=== PATIENT | male | born 1960 | race Caucasian/White ===

== ENCOUNTER 2017-04-22 15:40 | Emergency (ER) | payer OTHER ==
[2017-04-22 15:46] VITALS: BP 164/84
--- NOTE | 2017-04-22 15:58 | UC ---
[facility] Dental HPI - HPI Summary HPI Summary: on antibiotics for 2 days and now has worsening swelling right upper side of mouth/jaw - History of Current Complaint Chief Complaint: UCDentalProblem Stated Complaint: DENTAL PAIN Time Seen by Provider: 04/22/17 15:48 Hx Obtained From: Patient Onset/Duration: Gradual Onset, Lasting Weeks, Worse Since - past 2 days Severity: Moderate Aggravating: Nothing Alleviating: Nothing Related History: Previous Dental Care on Same Tooth, Swelling - Allergies/Home Medications Allergies/Adverse Reactions: Allergies Allergy/AdvReac Type Severity Reaction Status Date / Time Erythromycin Allergy Unknown Verified 04/22/17 17:33 Reaction Details Penicillins Allergy Unknown Verified 04/22/17 17:33 Reaction Details Home Medications: Home Medications Esomeprazole Magnesium [Nexium] 40 mg PO 04/22/17 [History] Lisinopril TAB* [Prinivil TAB*] 5 mg PO DAILY 04/22/17 [History Confirmed ] PMH/Surg Hx/FS Hx/Imm Hx Previously Healthy: No Cardiovascular History: Hypertension GI/ History: Other - ulcerative colitis Other GI/ History: ulcerative colitis - Surgical History Surgical History: None - Family History Known Family History: Positive: Diabetes - Social History Occupation: Unemployed Lives: With Family Alcohol Use: None Substance Use Type: None Smoking Status (MU): Never Smoked Tobacco - Immunization History Most Recent Influenza Vaccination: none Most Recent Tetanus Shot: around 2011 Most Recent Pneumonia Vaccination: none Review of Systems Constitutional: Negative Skin: Negative Eyes: Negative ENT: Dental Pain - worsening swellling right upper side of mouth Respiratory: Negative Cardiovascular: Negative Gastrointestinal: Negative Genitourinary: Negative Motor: Negative Neurovascular: Negative Musculoskeletal: Negative Neurological: Negative Psychological: Negative All Other Systems Reviewed And Are Negative: Yes Physical Exam Triage Information Reviewed: Yes Appearance: Well-Nourished, Ill-Appearing - older than stated age, Pain Distress - mild Vital Signs: Initial Vital Signs Temp 98.6 F 04/22/17 15:43 Pulse 113 04/22/17 15:43 Resp 18 04/22/17 15:43 BP 164/84 04/22/17 15:43 Pulse Ox 98 04/22/17 15:43 Vital Signs Reviewed: Yes Eye Exam: Normal Eyes: Positive: Conjunctiva Clear ENT Exam: Normal ENT: Positive: Normal ENT inspection, Hearing grossly normal. Negative: Nasal congestion, Nasal drainage, Trismus, Muffled/hoarse voice Dental Exam: Normal Dental: Positive: Percussion Tenderness @, Gross Decay/Caries @, Abscess @ Neck exam: Normal Neck: Positive: Supple, Nontender, No Lymphadenopathy Respiratory Exam: Normal Respiratory: Positive: Chest non-tender, No respiratory distress, No accessory muscle use Cardiovascular Exam: Normal Cardiovascular: Positive: RRR, Pulses Normal, Brisk Capillary Refill Musculoskeletal Exam: Normal Musculoskeletal: Positive: Strength Intact, ROM Intact, No Edema Neurological Exam: Normal Neurological: Positive: Alert, Muscle Tone Normal Psychological Exam: Normal Skin Exam: Normal Dental Complaint Course/Dx - Course Course Of Treatment: dental abscess right upper jaw - Differential Dx/Diagnosis Differential Diagnosis/Dx: Dental Abscess, Dental Caries, Fractured Tooth, Peridontic Disease, Peritonsillar Abcess Provider Diagnoses: dental abscess failed outpatient treatment - Physician Notification/Consults Instructed by Provider To: Other - transfer to ed Discharge - Discharge Plan Condition: Stable Disposition: HOME Patient Education Materials: Dental Abscess (ED) Referrals: Tamera Courtney MD [Primary Care Provider] - Additional Instructions: We are recommending you go to the emergency department to receive a higher level of evaluation than what I can provide for you at the urgent care
== END 2017-04-22 16:07 | disposition home or self-care (01) ==
LOC: UCEAST 15:40
DX: K04.7 Periapical abscess without sinus (principal); Z88.1 Allergy status to other antibiotic agents; Z88.0 Allergy status to penicillin; I10 Essential (primary) hypertension; K51.90 Ulcerative colitis, unspecified, without complications
CPT/HCPCS: 99211; G0463

== ENCOUNTER 2017-04-22 16:59 | Emergency (ER) | payer OTHER ==
[2017-04-22] MEDS ORDERED: NS 0.9% 1000 ML* 2,000 ML IV ONE (18:13)
[2017-04-22] MEDS ORDERED: Clindamycin 600 MG IVPREMIX(* 600 MG/50 ML SDV IV ONE (18:15)
[2017-04-22 19:22] LABS: Hematocrit 42 % (42-52); Hemoglobin 14.1 g/dl (14.0-18.0); Mean Corpuscular HGB Conc 33 g/dl (31-36); Mean Corpuscular Hemoglobin 33 pg (27-31); Mean Corpuscular Volume 97 fL (80-94); Mean Platelet Volume 8 um3 (7.4-10.4); Red Blood Count 4.35 10^6/ul (4.0-5.4); Red Cell Distribution Width 15 % (10.5-15)
[2017-04-22 19:38] LABS: BUN/Creatinine Ratio 15.9 (8-20); C Reactive Protein 12.24 mg/L (< 5.00); Calcium 9.4 mg/dL (8.6-10.3); EGFR African American 115.6 (>60); EGFR Non-African American 89.9 (>60); Globulin 3.1 g/dL (2-4); Total Bilirubin 0.4 mg/dL (0.2-1.0); Total Protein 8.1 g/dL (6.4-8.9)
[2017-04-22 19:39] LABS: Potassium 3.6 mmol/L (3.5-5.0)
[2017-04-22] MEDS ORDERED: Iohexol 300* (CONTRAST) 10 ML SDV IV ONE (19:54)
--- NOTE | 2017-04-22 20:45 | RAD ---
indication: Left facial swelling associated with dental abscess. COMPARISON: None A CT scan of the maxillofacial bones was performed after the injection of 75 mL Omnipaque 300. Contiguous axial sections were obtained from the level of the hyoid bone to just above the frontal sinuses. Findings: There is mild subcutaneous induration and thickening in the subcutaneous fat overlying the left mandible and maxilla. There is no drainable fluid collection. The fascial planes between the layers of fat are preserved. Bones: There is no displaced fracture or dislocation. The orbital rim is intact. Bilaterally the nasal bones are intact. The zygomatic arch is intact. The pterygoid plates are intact. There are no definite periapical lucencies at the left mandible or maxilla. The cortices of the bones are intact. Orbits: The globes are round. The optic nerves are symmetric. The extraocular musculature is normal. There is no post septal or intraconal inflammatory change. There is no retrobulbar hematoma. Paranasal Sinuses: There are frothy inspissated secretions in the left maxillary sinus as well as bilateral maxillary sinus mucosal thickening. There are frothy secretions in near complete opacification of the left sphenoid sinus. There is moderate mucosal thickening of the bilateral ethmoid air cells. Visualized brain: The limited views of the brain do not demonstrate any acute abnormality or extra-axial hemorrhage. IMPRESSION: 1. Mild subcutaneous soft tissue swelling and induration overlying the left mandible and maxilla. No drainable abscess is identified. 2. Paranasal sinus mucosal disease.
[2017-04-22 23:03] VITALS: BP 137/76
--- NOTE | 2017-04-23 01:34 | ED ---
Alireza Gomes SooYoung, scribed for Earnest Altman MD on 04/22/17 at 1743 . Complex/Multi-Sys Presentation - HPI Summary HPI Summary: A 57 y/o M [place] [facility] [place] with c/o L facial swelling at cheek onset yesterday. Associated sx: original sx was a moderate tooth ache to L front tooth onset three days ago; intermittent pain at gums. Pt saw a dentist two days and was told he had an infection and would need to have several teeth pulled once infection cleared. Given Clindamycin. Denies fever, chills. Pt states having never seen a dentist before. Denies prev dental problems. PMHx: HTN. No blood thinners. - History Of Current Complaint Chief Complaint: EDDentalPain Time Seen by Provider: 04/22/17 17:41 Hx Obtained From: Patient Onset/Duration: Gradual Onset, Lasting Days, Still Present Timing: Constant Severity Currently: Moderate Severity Initially: Moderate Location: Pain At: - L upper dental Associated Signs And Symptoms: Positive: Other - L cheek edema - Allergies/Home Medications Allergies/Adverse Reactions: Allergies Allergy/AdvReac Type Severity Reaction Status Date / Time Erythromycin Allergy Unknown Verified 04/22/17 17:33 Reaction Details Penicillins Allergy Unknown Verified 04/22/17 17:33 Reaction Details PMH/Surg Hx/FS Hx/Imm Hx Previously Healthy: No Endocrine/Hematology History: Denies: Hx Diabetes Cardiovascular History: Reports: Hx Hypertension Denies: Hx Congestive Heart Failure History: Denies: Hx Renal Disease Sensory History: Reports: Hx Contacts or Glasses Opthamlomology History: Reports: Hx Contacts or Glasses Psychiatric History: Reports: Hx Anxiety Infectious Disease History: Denies: Traveled Outside the [place] in Last 30 Days - Family History Known Family History: Positive: Diabetes - Social History Occupation: Unemployed Lives: With Family Alcohol Use: None Hx Substance Use: No Substance Use Type: Reports: None Hx Tobacco Use: No Smoking Status (MU): Never Smoked Tobacco Review of Systems Negative: Fever Positive: Dental Pain, Other - pos: edema to L cheek; gum pain All Other Systems Reviewed And Are Negative: Yes Physical Exam - Summary Physical Exam Summary: The patient is well-nourished in no acute distress and in no acute pain. The skin is warm and dry and skin color reflects adequate perfusion. HEENT: The head is normocephalic and atraumatic. The pupils are equal and reactive. The conjunctivae are clear and without drainage. Nares are patent and without drainage. Mouth reveals moist mucous membranes and the throat is without erythema and exudate. The external ears are intact. The ear canals are patent and without drainage. The tympanic membranes are intact. Dental: Swelling to L-side of face, not red or hot, no collection of fluid, does not trans-illuminate with light. Central lateral incisors bilat and extending to L side are in poor repair. Gums inflamed. No true tenderness to percussion. Neck is supple with full range of motion and non-tender. There are no carotid bruits. There is no neck vein distension. No adenopathy. Respiratory: Chest is non-tender. Lungs are clear to auscultation and breath sounds are symmetrical and equal. Cardiovascular: Hear is regular rate and rhythm. There is no murmur or rub auscultated. There is no peripheral edema and pulses are symmetrical and equal. Musculoskeletal: There is no back pain noted. Extremities are non-tender with full range of motion. There is good capillary refill. There is no peripheral edema or calf tenderness elicited. Neurological: Patient is alert and oriented to person, place and time. The patient has symmetrical motor strength in all four extremities. Cranial nerves are grossly intact. Deep tendon reflexes are symmetrical and equal in all four extremities. Psychiatric: The patient has an appropriate affect and does not exhibit any anxiety or depression. Triage Information Reviewed: Yes Vital Signs On Initial Exam: Initial Vitals Temp Pulse Resp BP Pulse Ox 98.5 F 120 18 140/96 96 04/22/17 17:30 04/22/17 17:30 04/22/17 17:30 04/22/17 17:30 04/22/17 17:30 Vital Signs Reviewed: Yes Diagnostics - Vital Signs Vital Signs Temp Pulse Resp BP Pulse Ox 04/22/17 17:30 98.5 F 120 18 140/96 96 - Laboratory Lab Results: Lab Results 04/22/17 04/22/17 04/22/17 Range/Units 19:10 19:10 19:10 WBC 8.0 (3.5-10.8) 10^3/ul RBC 4.35 (4.0-5.4) 10^6/ul Hgb 14.1 (14.0-18.0) g/dl Hct 42 (42-52) % MCV 97 H (80-94) fL MCH 33 H (27-31) pg MCHC 33 (31-36) g/dl RDW 15 (10.5-15) % Plt Count 280 (150-450) 10^3/ul MPV 8 (7.4-10.4) um3 Neut % (Auto) 77.3 (38-83) % Lymph % (Auto) 10.8 L (25-47) % [place] % (Auto) 9.5 H (1-9) % Eos % (Auto) 1.8 (0-6) % Baso % (Auto) 0.6 (0-2) % Absolute Neuts (auto) 6.2 (1.5-7.7) 10^3/ul Absolute Lymphs (auto) 0.9 L (1.0-4.8) 10^3/ul Absolute Monos (auto) 0.8 (0-0.8) 10^3/ul Absolute Eos (auto) 0.1 (0-0.6) 10^3/ul Absolute Basos (auto) 0 (0-0.2) 10^3/ul Absolute Nucleated RBC 0 10^3/ul Nucleated RBC % 0.1 Sodium 135 (133-145) mmol/L Potassium 3.6 (3.5-5.0) mmol/L Chloride 103 (101-111) mmol/L Carbon Dioxide 22 (22-32) mmol/L Anion Gap 10 (2-11) mmol/L BUN 14 (6-24) mg/dL Creatinine 0.88 (0.67-1.17) mg/dL Est GFR ( Amer) 115.6 (>60) Est GFR (Non-Af Amer) 89.9 (>60) BUN/Creatinine Ratio 15.9 (8-20) Glucose 100 (70-100) mg/dL Lactic Acid 0.8 (0.5-2.0) mmol/L Calcium 9.4 (8.6-10.3) mg/dL Total Bilirubin 0.40 (0.2-1.0) mg/dL AST 19 (13-39) U/L ALT 21 (7-52) U/L Alkaline Phosphatase 57 (34-104) U/L C-Reactive Protein 12.24 H (< 5.00) mg/L Total Protein 8.1 (6.4-8.9) g/dL Albumin 5.0 (3.2-5.2) g/dL Globulin 3.1 (2-4) g/dL Albumin/Globulin Ratio 1.6 (1-3) Result Diagrams: 04/22/17 19:10 04/22/17 19:10 Lab Statement: Any lab studies that have been ordered have been reviewed, and results considered in the medical decision making process. - CT Maxillofacial CT CT Interpretation: Positive (See Comments) - IMPRESSION: 1. Mild subcutaneous soft tissue swelling and induration overlying the left mandible and maxilla. No drainable abscess is identified. 2. Paranasal sinus mucosal disease. CT Interpretation Completed By: Radiologist Re-Evaluation - Re-Evaluation 1 Re-Evaluation Time: 21:03 Change: Unchanged Comment: Discussing results with pt. Discussed changing dosage of Clindamycin to QID, 300mg. Pt voiced understanding. Complex Multi-Symp Course/Dx Course Of Treatment: Pt is a 57 y/o M referred [place] [facility] [place] with dental pain onset three days ago and L facial swelling at cheek onset yesterday. Associated sx: intermittent pain at gums. Pt saw a dentist two days ago given Clindomycin for infection, will have teeth pulled when infection clears. Denies fever, chills. Pt states having never seen a dentist before. Denies prev dental problems. PMHx: HTN. No blood thinners. Pt given fluids and Clindomycin in ED. Bloodwork is without signifcant abnormalities except CRP is 12.24. Maxillofacial CT shows "1. Mild subcutaneous soft tissue swelling and induration overlying the left mandible and maxilla. No drainable abscess is identified. 2. Paranasal sinus mucosal disease.". Will D/C home to f/u with dentist. Discussed changing Clindamycin to 300mg QID. - Diagnoses Differential Diagnoses/HQI/PQRI: Other - dental infection Provider Diagnoses: Facial cellulitis Discharge - Discharge Plan Condition: Stable Disposition: HOME Prescriptions: Clindamycin Cap(NF) [Clindamycin Cap 300 mg Cap(NF)] 300 mg PO Q6H #10 cap Patient Education Materials: Clindamycin (By mouth), Cellulitis (ED) Referrals: Tamera Courtney MD [Primary Care Provider] - Additional Instructions: As we discussed, increased the Clindamycin dose (300mg) to 4x a day. Follow up with your dentist as scheduled. The documentation as recorded by the Alireza osborne SooYoung accurately reflects the service I personally performed and the decisions made by me, Earnest Altman MD.
== END 2017-04-22 21:17 | disposition home or self-care (01) ==
LOC: ED 16:59
DX: L03.211 Cellulitis of face (principal); K08.89 Other specified disorders of teeth and supporting structures; R60.9 Edema, unspecified
CPT/HCPCS: 36415; 70487; 80053; 83605; 85025; 86140; 99282; Q9967

== ENCOUNTER → 2018-03-31 09:21 | Day surgery (SDC) | payer OTHER ==
--- NOTE | 2018-03-28 16:30 | HP ---
CC: Dr. Tamera Courtney; Dr. Pérez * PREOPERATIVE HISTORY AND PHYSICAL: DATE OF ADMISSION: 03/31/18 DATE OF PREOPERATIVE HISTORY AND PHYSICAL EXAMINATION: 03/28/18. This patient is scheduled for same-day surgery admission by Dr. Haney on , 03/31/18. ATTENDING SURGEON: Dr. Frankie Haney * (dictated by Kalani Miller NP). CHIEF COMPLAINT: Bilateral groin hernias. HISTORY OF PRESENT ILLNESS: The patient is a 58-year-old male, recently evaluated by Dr. Haney for bilateral inguinal hernias. He was seen approximately 2 years ago and at that point, the hernias were small and asymptomatic. The patient reports that the hernias have enlarged and are becoming uncomfortable, especially on the left side. He denies any signs or symptoms to suggest incarceration or strangulation. He has not had any recent injury or trauma to the area. Dr. Haney examined the patient and notes bilateral inguinal hernias, left larger than right and the left side comes down into the scrotum. Both inguinal hernias are soft and reducible. Dr. Haney discussed the findings with the patient and discussed the various surgical approaches and the patient has opted for open bilateral inguinal hernia repair with mesh as a same-day surgery procedure. Dr. Haney described the nature of the surgical procedure, the rationale for the procedure, the relevant risks and benefits, and today, I reviewed the expected postoperative care and recovery. The patient has had a chance to ask questions and stated that he understands the information and is satisfied with the answers given to his questions. He will sign surgical consent on the day of surgery. PAST MEDICAL HISTORY: Significant for hypertension, hyperlipidemia, chronic ulcerative colitis, GERD, anxiety, panic disorder. PAST SURGICAL HISTORY: Limited to office excision of a lipoma on the chest. MEDICATIONS: 1. Lisinopril 10 mg p.o. daily. 2. Diltiazem CD 180 mg p.o. daily. 3. Hydroxyzine 25 mg as needed for anxiety and he rarely uses this. 4. Gemfibrozil 600 mg p.o. b.i.d. 5. Sulfasalazine 500 mg 2 tablets p.o. 4 times a day. 6. Mercaptopurine 50 mg 1 and a half tablets daily. 7. Omeprazole 40 mg p.o. daily. 8. Fish oil supplement 1000 mg p.o. daily. ALLERGIES: PENICILLIN caused rash in childhood, ERYTHROMYCIN causes GI upset. FAMILY HISTORY: Father with a history of RI and emphysema. Mother is living and has thyroid and cardiac issues. No known anesthesia complications, clotting disorders, or bleeding tendencies in the family. SOCIAL HISTORY: He is single and lives with his mother. He is unemployed. He has never been a smoker. He denies the use of alcohol or other substances and walks regularly for exercise. REVIEW OF SYSTEMS: Constitutional: No fevers, chills, excessive fatigue, or weight loss. Endocrine: No diabetes or thyroid disease. Hematologic: No easy bruising or bleeding. No history of blood transfusions. Respiratory: No dyspnea on exertion, no chronic cough. Cardiovascular: No anginal chest pain or palpitations. He is followed by Dr. Pérez for hypertension and hyperlipidemia and had his last week on 01/12/18. He denied any shortness of breath or chest pain or syncopal episodes. He has followup scheduled at Dr. Pérez's office on 04/15/18. Gastrointestinal: No nausea, vomiting, diarrhea, or constipation. No change in bowel habits. He is treated for ulcerative colitis and GERD with good effect. Genitourinary: No dysuria. Musculoskeletal: No joint or back pain. Neurologic: No headache or blurred vision. No areas of focal weakness. General: No previous anesthesia complications. No history of deep vein thrombosis or pulmonary embolism. Psychiatric: History of anxiety and panic disorders. PHYSICAL EXAMINATION GENERAL SURVEY: The patient is a 58-year-old male, well developed, well nourished, mildly overweight, in no acute distress. VITAL SIGNS: Height 72 inches, weight 205 pounds, body mass index 27.8. Blood pressure 160/78, pulse 100, respiratory rate 16, temperature 99.2 tympanic. HEENT: Benign. NECK: Supple. No cervical lymphadenopathy. LUNGS: Breath sounds bilaterally clear and equal. HEART: Regular rate and rhythm. No murmurs or rubs appreciated. ABDOMEN: Active bowel sounds, soft, nondistended, nontender. No obvious umbilical hernia. Inguinal exam is done by Dr. Haney reveals bilateral inguinal hernias, left larger than right and the left side comes down into the scrotum, both hernias are soft and reducible. Testes are normally descended. RECTAL: Exam deferred. EXTREMITIES: Warm without edema or skin ulceration. NEUROLOGIC: Alert and oriented x3. Steady gait. SKIN: Warm, dry, intact. IMPRESSION: Bilateral inguinal hernias. PLAN: Same-day surgery admission to Dr. Haney's service on , 03/31/18 , for open repair of bilateral inguinal hernias with mesh. WALDO MILLER, [employer]PER[employer] [id number]/[facility] #: [id number] [facility] CENTERTabitha
[~2018-03-31 09:21] MED LIST: Buffered Lidocaine 0.9% SYRIN* 5 ML/SYR SYRINGE INTRADERM ONE; Bupivacaine 0.5% PF 10 ML VIAL INJ ONE; Clindamycin 900 MG IVPREMIX(* 900 MG/50 ML SDV IV ONE; DiMENhydriNATE IV* 50 MG/ML VIAL IV PUSH PRN; HYDROmorphone INJ* 0.5 MG/0.5 ML SYRINGE IV PRN; Ketorolac INJ* 30 MG/ML 1 ML VIAL ONE; Lidocaine 1% MPF wEPI 200,000* 30 ML SDV ONE; Midazolam* 1 MG/ML 5 ML VIAL (5 MG) ONE; Naloxone* 0.4 MG/ML 1 ML VIAL IV PRN; Ondansetron INJ* 2 MG/ML VIAL IV PRN; Propofol* 10 MG/ML 20 ML BTL IV PUSH ONE; fentaNYL* 50 MCG/ML 2 ML VIAL (100 MCG VIAL) IV PRN; fentaNYL* 50 MCG/ML 2 ML VIAL (100 MCG VIAL) ONE
[2018-03-31 14:20] VITALS: BP 166/95
--- NOTE | 2018-03-31 22:40 | OP ---
CC: Dr. Tamera Courtney * DATE OF OPERATION: 03/31/18 - [facility] DATE OF : 64 SURGEON: Frankie Haney MD HERPETOLOGY TEACHER: Kalani Crowley NP ANESTHESIOLOGIST: Nilton Núñez MD ANESTHESIA: LMAC anesthesia. PRE-OP DIAGNOSIS: Bilateral inguinal hernias. POST-OP DIAGNOSIS: Bilateral inguinal hernias. OPERATIVE PROCEDURE: Open repair of bilateral inguinal hernias with mesh. DESCRIPTION OF PROCEDURE: The patient was supine on the operating table. After adequate intravenous sedation, compression stockings and Clover Hugger warmer, the groins were clipped and prepped with antiseptic, draped in a sterile fashion. Local infiltrative anesthesia was administered. The left side was addressed first. An approximately 2.5-inch incision was created and dissection carried down through the external oblique, which was opened in the direction of its fibers. Cord structures were encircled with the [place] drain tented upward. There was a fairly large indirect space sac within the cremasteric fibers. This was dissected free and reduced and a cone mesh plug was placed into the internal ring, sutured there with 2-0 Vicryl. A second piece of mesh was placed over the inguinal floor, sutured at the tubercle tails , was split, brought around the cord structures and tacked down laterally. External oblique was closed over top with 2-0 Vicryl, Mojgan's with 3-0 Vicryl, skin with 4-0 Prolene. On the right side, identical incision and dissection was carried out. There was a moderate-sized indirect sac, but there was also a moderate-sized direct space defect. The direct space was opened and the preperitoneal plane developed and the hernia was reduced. The indirect space was also addressed and the hernia was dissected free and reduced. Then, a cone mesh plug was placed into the internal ring, sutured there with 2-0 Vicryl. An underlay patch was put into the preperitoneal plane. This was approximately an 8 cm shoalwater. This was attached to an external piece, which was sutured at the tubercle. Tails were split and brought around the cord structures and tacked down laterally. This mesh was also tacked to the inguinal ligament and to the pubic tubercle and to the transverse abdominis. This created good repair. External oblique was closed over top with 2-0 Vicryl, Mojgan's with 3-0 Vicryl, skin with 4-0 Prolene. He tolerated the procedure well, was awakened and brought to Recovery in good condition. There were no complications. No drains. No pathologic specimens. Sponge and instrument counts were correct. Estimated blood loss less than 30 mL. [id number]/[id number] #: [id number] [facility]
== END | disposition home or self-care (01) ==
LOC: OR 09:21
PROVIDERS: ATTEND Surgery
DX: K40.20 Bilateral inguinal hernia, without obstruction or gangrene, not specified as recurrent (principal); I10 Essential (primary) hypertension; E78.5 Hyperlipidemia, unspecified; K51.90 Ulcerative colitis, unspecified, without complications; K21.9 Gastro-esophageal reflux disease without esophagitis; F41.0 Panic disorder [episodic paroxysmal anxiety]
CPT/HCPCS: C1781; J1885; J2001; J2250; J2704; J3010

== ENCOUNTER 2018-05-25 10:41 | Observation (INO) | payer OTHER ==
--- NOTE | 2018-05-25 11:03 | ED ---
HPI Chest Pain - HPI Summary HPI Summary: This patient is a 58 year old M presenting to [facility] accompanied by his mother with a chief complaint of mid sternal chest tightness for the past two hours and palpitations since last night. Patient rates tightness 3/10 in severity; he states it is improved from triage at 7/10 in severity. Denies SOB, abdominal pain, back pain, calf pain, and cough. Patient reports a history of premature beats, but states last night palpitations were more frequent than usual. PMHx of HTN, hyperlipidemia, anxiety, and colitis. FMHx for [place]; father at age 60. Denies PMHx and FMx of DVT. Patient is seen by Dr. Pérez, electrical installation supervisor. - History of Current Complaint Chief Complaint: EDChestPainROMI Time Seen by Provider: 05/25/18 10:58 Hx Obtained From: Patient Onset/Duration: Started Hours Ago Timing: Constant Initial Severity: Severe Current Severity: Moderate Pain Intensity: 3 Pain Scale Used: 0-10 Numeric Chest Pain Location: Mid Sternal Chest Pain Radiates: No Character: Fast, Skipped Beats, Tightness Aggravating Factor(s): Nothing Alleviating Factor(s): Nothing Associated Signs and Symptoms: Positive: Chest Pain. Negative: Shortness of Breath, Cough, Back Pain, Abdominal Pain, Calf Pain/Swelling Related History: Similar Episode/Dx as: - premature beats - Allergy/Home Medications Allergies/Adverse Reactions: Allergies Allergy/AdvReac Type Severity Reaction Status Date / Time erythromycin base Allergy Unknown Verified 03/31/18 09:42 Reaction Details Penicillins Allergy Unknown Verified 03/31/18 09:42 Reaction Details Home Medications: Home Medications [place]-3 Fatty Acids (Nf) [Fish Oil (NF)] 1,000 mg PO DAILY 05/25/18 [History Confirmed 05/25/18] Omeprazole CAP* [Prilosec CAP* 20 MG] 40 mg PO DAILY 05/25/18 [History Confirmed 05/25/18] dilTIAZem HCl [Cartia Xt] 180 mg PO DAILY 05/25/18 [History Confirmed 05/25/18] sulfaSALAzine TAB* [Azulfidine TAB*] 1,000 mg PO QPM 05/25/18 [History Confirmed 05/25/18] sulfaSALAzine TAB* [Azulfidine TAB*] 1,500 mg PO BID 05/25/18 [History Confirmed 05/25/18] PMH/Surg Hx/FS Hx/Imm Hx Endocrine/Hematology History: Reports: Hx Diabetes - pre Cardiovascular History: Reports: Hx Hypercholesterolemia, Hx Hypertension - on meds Denies: Hx Congestive Heart Failure, Other Cardiovascular Problems/Disorders Respiratory History: Denies: Other Respiratory Problems/Disorders GI History: Reports: Hx Gastroesophageal Reflux Disease, Hx Hiatal Hernia, Other GI Disorders - ulcerative colitis, on meds History: Denies: Hx Renal Disease Sensory History: Reports: Hx Contacts or Glasses Denies: Hx Hearing Aid Opthamlomology History: Reports: Hx Contacts or Glasses Psychiatric History: Reports: Hx Anxiety - on meds - Surgical History Surgery Procedure, Year, and Place: 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 Hx Anesthesia Reactions: No Infectious Disease History: No Infectious Disease History: Denies: Traveled Outside the [place] in Last 30 Days - Family History Known Family History: Positive: Cardiac Disease - Father: age 60 [place], Diabetes - Social History Alcohol Use: None Hx Substance Use: No Substance Use Type: Reports: None Hx Tobacco Use: No Smoking Status (MU): Never Smoked Tobacco Review of Systems Negative: Fever, Chills Negative: Erythema Negative: Sore Throat Positive: Palpitations, Chest Pain Negative: Shortness Of Breath, Cough Negative: Abdominal Pain, Vomiting, Diarrhea, Nausea Negative: dysuria, hematuria Negative: Myalgia, Edema Negative: Rash Neurological: Negative - dizziness All Other Systems Reviewed And Are Negative: Yes Physical Exam - Summary Physical Exam Summary: Constitutional: Well-developed, Well-nourished, Alert. (-) Distressed Diaphoretic Skin: Warm, Dry HENT: Normocephalic; Atraumatic Eyes: Conjunctiva normal Neck: Musculoskeletal ROM normal neck. (-) JVD, (-) Stridor, (-) Tracheal deviation Cardio: Irregular pulse with slightly elevated rate, Heart sounds normal; Intact distal pulses; The pedal pulses are 2+ and symmetric. Radial pulses are 2 + and symmetric. (-) Murmur Pulmonary/Chest wall: Effort normal. (-) Respiratory distress, (-) Wheezes, (-) Rales Abd: Soft, (-) epigastric tenderness, (-) Distension, (-) Guarding, (-) Rebound Musculoskeletal: (-) Edema Lymph: (-) Cervical adenopathy Neuro: Alert, Oriented x3 Psych: Mood and affect Normal Triage Information Reviewed: Yes Vital Signs On Initial Exam: Initial Vitals Temp Pulse Resp BP Pulse Ox 98.9 F 125 22 209/111 99 05/25/18 10:44 05/25/18 10:44 05/25/18 10:44 05/25/18 10:44 05/25/18 10:44 Vital Signs Reviewed: Yes Diagnostics - Vital Signs Vital Signs Temp Pulse Resp BP Pulse Ox 05/25/18 10:44 98.9 F 125 22 209/111 99 - Laboratory Result Diagrams: 05/25/18 11:25 05/25/18 11:25 Lab Statement: Any lab studies that have been ordered have been reviewed, and results considered in the medical decision making process. - Radiology CXR Radiology Interpretation Completed By: Radiologist - NO ACTIVE CARDIOPULMONARY DISEASE. ED Physician has reviewed this report. - EKG 1048 Cardiac Rate: Tachycardia - 105 BPM EKG Rhythm: Sinus Rhythm EKG Interpretation: no STEMI Chest Pain Course/Dx - Course Course Of Treatment: 58 year old M presenting to [facility] accompanied by his mother with a chief complaint of mid sternal chest tightness for the past two hours and palpitations since last night. Patient rates tightness 3/10 in severity; he states it is improved from triage at 7/10 in severity. Denies SOB, abdominal pain, back pain, calf pain, and cough. Patient reports a history of premature beats, but states last night palpitations were more frequent than usual. PMHx of HTN, hyperlipidemia, anxiety, and colitis. Patient is seen by Dr. Pérez, electrical installation supervisor. EKG is of no acute concern. A CXR reveals no active disease. Bloodwork is obtained. Blood pressure is elevated in the ED. Patient is hypertensive if the ED. Patient is given Nitroglycerin, Metoprolol, Ativan, and ASA. Discussed patient with Dr. Palacios, hospitalist, who agrees to admit this patient. - Diagnoses Provider Diagnoses: Hypertensive emergency, Chest pain, unspecified - Provider Notifications Discussed Care Of Patient With: Shahida Palacios - hospitalist Time Discussed With Above Provider: 12:18 Instructed by Provider To: Admit As Inpatient Discharge - Sign-Out/Discharge Documenting (check all that apply): Patient Departure - admit - Discharge Plan Condition: Stable Disposition: ADMITTED TO [facility] - Attestation Statements Document Initiated by Scribe: Yes Documenting Scribe: Katherine Gonzalez Provider For Whom Scribe is Documenting (Include Credential): Singh Siddiqui MD Scribe Attestation: Katherine Gomes, scribed for Singh Siddiqui MD on 05/25/18 at 1511.
[2018-05-25] MEDS ORDERED: Metoprolol Tartrate IV* 1 MG/ML 5 ML VIAL IV ONE (11:18)
[2018-05-25] MEDS ORDERED: LORazepam INJ* 2 MG/ML 1 ML VIAL IV PUSH ONE (11:18)
[2018-05-25] MEDS ORDERED: Aspirin 81 mg CHEW TAB* 81 MG TAB.CHEW PO ONE (11:22)
[2018-05-25] MEDS ORDERED: Nitroglycerin TAB 0.4 MG* 0.4 MG TAB SL ONE (11:22)
[2018-05-25 11:39] LABS: ABS Basophils 0.1 10^3/ul (0-0.2); ABS Eosinophils 0.4 10^3/ul (0-0.6); ABS Lymphocytes 1.7 10^3/ul (1.0-4.8); ABS Monocytes 0.5 10^3/ul (0-0.8); ABS Neutrophils 4.6 10^3/ul (1.5-7.7); ABS Nucleated RBC 0 10^3/ul; Hematocrit 42 % (42-52); Hemoglobin 13.8 g/dl (14.0-18.0); Lymphocyte % 22.8 % (25-47); Mean Corpuscular HGB Conc 33 g/dl (31-36); Mean Corpuscular Hemoglobin 29 pg (27-31); Mean Corpuscular Volume 88 fL (80-94); Mean Platelet Volume 7.7 um3 (7.4-10.4); Nucleated Red Blood Cells % 0.1; Platelet Count 276 10^3/ul (150-450); Red Blood Count 4.76 10^6/ul (4.00-5.40); Red Cell Distribution Width 15 % (10.5-15); White Blood Count 7.4 10^3/ul (3.5-10.8)
--- NOTE | 2018-05-25 11:40 | RAD ---
HISTORY: CHEST PAIN COMPARISONS: 01/11/2016 VIEWS: 1: frontal portable view of the chest at 12:24 AM FINDINGS: LINES AND TUBES: None. CARDIOMEDIASTINAL SILHOUETTE: The cardiomediastinal silhouette is normal for portable technique. PLEURA: The costophrenic angles are sharp. No pleural abnormalities are noted. LUNG PARENCHYMA: The lungs are clear. ABDOMEN: The upper abdomen is clear. There is no subphrenic gas. BONES AND SOFT TISSUES: No bone or soft tissue abnormalities are noted. IMPRESSION: NO ACTIVE CARDIOPULMONARY DISEASE.
[2018-05-25] MEDS ORDERED: NS 0.9% 1000 ML* 1,000 ML IV ONE (13:37)
[2018-05-25] MEDS: sulfaSALAzine TAB* 500 MG PO SCH ×3 (13:46→21:31)
[2018-05-25] MEDS: Heparin VIAL(*) 5000 UNITS/ML VIAL (FIVE THOUSAND) SUBCUT SCH ×2 (13:55→21:29)
[2018-05-25] MEDS ORDERED: Perflutren Lipid Microsphere* 3 ML VIAL ONE (14:33)
--- NOTE | 2018-05-25 15:38 | ECHO ---
Patient: GUILLAUME ROMAN [facility] Rec#: [id number] : 1960 Date: 05/25/2018 Age: 58y Height: 183 cm / 72.0 in Weight: 108.9 kg / 240.0 lbs Sex: M BSA: 2.3 Room#: [facility] Admit Date#: 05/25/2018 Type: Inpatient Referring: Mara Price Reading: Michelle Fung MD Rippler: Sadaf Barboza RDCS CC: AURELIO MONTILLA Transthoracic Echocardiogram Indication: Chest Pain BP: 132/88 HR: 88 Rhythm: NSR with PACs Findings History: HLD, HTN, palpitations. Technical Comments: The study is technically limited due to poor apical windows. Completed at 1515. Left Ventricle: The left ventricular chamber size is normal. There is no left ventricular hypertrophy. Global left ventricular wall motion and contractility are within normal limits. There is normal left ventricular systolic function. The estimated ejection fraction is 55-60%. There is no consistent Doppler evidence of clinically significant diastolic dysfunction. Left Atrium: The left atrial chamber size is normal. Right Ventricle: Moderator Band present. The right ventricle is mild to moderately dilated. The right ventricular global systolic function is normal. Right Atrium: The right atrium is mildly dilated. Aortic Valve: The aortic valve is trileaflet. There is no evidence of aortic valve thickening. There is no evidence of aortic regurgitation. There is no evidence of aortic stenosis. Mitral Valve: The mitral valve leaflets are mildly thickened. There is a trace of mitral regurgitation. There is no evidence of mitral stenosis. Tricuspid Valve: The tricuspid valve leaflets are normal. There is trace tricuspid regurgitation. Unable to estimate the right ventricular systolic pressure. There is no tricuspid stenosis. Pulmonic Valve: The pulmonic valve appears normal. There is a trace pulmonic regurgitation. There is no pulmonic stenosis. Pericardium: There is no significant pericardial effusion. Aorta: There is no dilatation of the ascending aorta. There is no dilatation of the aortic arch. The aortic root is normal in size. Pulmonary Artery: The main pulmonary artery appears normal. Venous: The inferior vena cava is not visualized. Contrast: Definity was used to optimize study. 3 mL of diluted Defiinity were utilized. Intravenous contrast was used to enhance endocardial border definition. Conclusions The left ventricular chamber size is normal. The estimated ejection fraction is 55-60%. The right ventricle is mild to moderately dilated. The right ventricular global systolic function is normal. There is a trace of mitral regurgitation. There is trace tricuspid regurgitation. Compared with prior echo of 12/24/14 LVEF is stable, RV previously dilated. Overall stable. Measurements Name Value Normal Range RVIDd (AP) 2D 3.2 cm (0.9 - 2.6) RVDdMajor (2D) 5 cm (2.2 - 4.4) RAd ISD 4CH 5.4 cm (3.4 - 4.9) RA (A4C)W 4.5 cm (2.9 - 4.6) IVSd (2D) 0.8 cm (0.6 - 1) LVPWd (2D) 0.9 cm (0.6 - 1) LVIDd (2D) 5.3 cm (3.6 - 5.4) LVIDs (2D) 3.1 cm - LV FS (2D) 42 % (25 - 45) Aortic Annulus 1.8 cm (1.4 - 2.6) Ao root diameter (2D) 3.3 cm (2.1 - 3.5) Ascending Ao 3.3 cm (2.1 - 3.4) Aortic arch 3.2 cm (1.8 - 3.4) LA dimension (AP) 2D 3.5 cm (2.3 - 3.8) LAd ISD 4CH 5 cm (2.9 - 5.3) LA ISD 4CH W 4.3 cm (2.5 - 4.5) Name Value Normal Range LA ESV BP (A/L) index 25 ml/m2 - Name Value Normal Range MV E-wave Vmax 0.97 m/sec - MV deceleration time 236 msec - MV A-wave Vmax 1 m/sec - MV E:A ratio 0.9 ratio - LV septal e' Vmax 0.08 m/sec - LV lateral e' Vmax 0.09 m/sec - LV E:e' septal ratio 12 ratio - LV E:e' lateral ratio 10.78 ratio - Name Value Normal Range AV Vmax 1.6 m/sec - AV VTI 28.7 cm - AV peak gradient 11 mmHg - AV mean gradient 6 mmHg - LVOT Vmax 1.2 m/sec - LVOT VTI 20.7 cm - LVOT peak gradient 5 mmHg - LVOT mean gradient 3 mmHg - FATOUMATA Vmax 1.1 m/sec - Name Value Normal Range PV Vmax 1.5 m/sec - PV peak gradient 9 mmHg - MN end-diastolic Vmax 1.2 m/sec -
[2018-05-25] MEDS ORDERED: Lisinopril TAB* 10 MG PO SCH (18:00)
--- NOTE | 2018-05-25 19:51 | HP ---
HISTORY AND PHYSICAL: DATE OF ADMISSION: 05/25/18 PROVIDER: Helen Alvarez NP ATTENDING PHYSICIAN: Dr. Herndon * (report dictated by Helen Alvarez NP). PRIMARY CARE PROVIDER: Dr. Tamera Courtney. BENEFITS ADMINISTRATOR: Dr. Pérez. CHIEF COMPLAINT: Chest tightness. HISTORY OF PRESENT ILLNESS: Mr. Bello is a 58-year-old male with a past medical history of palpitations; history of trigeminy; hypertension; dyslipidemia; ulcerative colitis, on sulfasalazine and mercaptopurine, who presents to the emergency department today with report of chest tightness and palpitations. 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 He reports that he was playing video games all night on the computer. Around 6: 00 a.m., he noted that he was having increased palpitations which is not quite unusual for him but reports that these have been more controlled as of lately. He reports he went to lie down and noted that the palpitations were still present and he became concerned and worried stating somebody told him once if he had too many palpitations that his heart could stop. He then states he became very anxious. He experienced chest tightness in his midsternum area. He denied any shortness of breath or radiation. He decided to come to the emergency department and the whole ride here, he states that his chest tightness became worse and he felt more panicked. In the emergency department, he was initially found to have a blood pressure of 209/111. He was given a sublingual nitro and 5 of metoprolol in the emergency department in which he reports resolved his chest pressure and resolved his hypertension urgency. Initial troponin is 0.00. His lactic acid is noted to be 2.5. He denies any recent illnesses and reports that he has been feeling well at his baseline. He reports that he walks a mile or two a day and denies ever having any chest pain or shortness of breath. He states that he follows with Dr. Pérez and recently within the last couple of months, his lisinopril was increased and he had a followup approximately 3 weeks ago and his blood pressure was noted to be well controlled around 122/72. The patient reports he had a stress test 2 to 3 years ago, reporting that this placed him at low risk. He denies history of heart attack before in the past, but reports strong family history. The patient reports significant anxiety at his baseline, currently he reports he feels much better and denies any chest pain or shortness of breath. PAST MEDICAL HISTORY: 1. Hypertension. 2. Dyslipidemia. 3. Anxiety. 4. History of palpitations. 5. History of trigeminy. 6. Ulcerative colitis. 7. GERD. PAST SURGICAL HISTORY: Bilateral hernia repair, 2018. CURRENT MEDICATIONS: 1. Fish oil 1000 mcg p.o. daily. 2. Omeprazole 40 mg p.o. daily. 3. Lisinopril 10 mg p.o. q.a.m. 4. Diltiazem HCl 180 mg p.o. daily in the morning. 5. Mercaptopurine 75 mg p.o. daily. 6. Chemo meds used for ulcerative colitis (sulfasalazine 1500 mg p.o. in the morning and mid day and 1000 mg at nighttime). ALLERGIES: ERYTHROMYCIN, PENICILLIN. FAMILY HISTORY: The patient reports a strong family history of coronary artery disease, his father had an PA and 2 uncles both had PA, otherwise no family history of diabetes or cancer. SOCIAL HISTORY: The patient denies history of tobacco abuse. He does not drink alcohol. He reports little caffeine intake. He currently lives with his mother who is his surrogate decision maker. She currently is present during the evaluation. REVIEW OF SYSTEMS: A 14-point review of systems was performed. All other pertinent positives and negatives are mentioned in the history of present illness. Otherwise are negative. PHYSICAL EXAMINATION GENERAL APPEARANCE: A 58-year-old male, alert and oriented x3, sitting up in the emergency department stretcher, in no acute distress. VITAL SIGNS: Temperature 98.9, heart rate 75, respirations 15, O2 sat 96% on room air, blood pressure 132/88. HEENT: Head is normocephalic, atraumatic. Pupils are equal and reactive to light. Oropharynx is clear. Moist mucous membranes. Poor dentition. NECK: Supple. LUNGS: Clear to auscultation bilaterally. Good aeration throughout. No accessory muscle use. CARDIAC: S1, S2. Regular rate and rhythm. No murmur, rub, or gallops appreciated. No lower extremity edema noted. No JVD noted. ABDOMEN: Slightly obese, soft, nontender, nondistended. Normal bowel sounds throughout. EXTREMITIES: No clubbing, cyanosis, or edema. 2+ DP pulses bilaterally. Strength was 5/5 throughout. Moves all extremities easily. NEUROLOGIC: Alert and oriented x3. Cranial nerves II through XII are grossly intact. No focal deficits noted. DIAGNOSTIC STUDIES/LAB DATA: WBC 7.4, RBC 4.76, Hgb 13.8, Hct 48, MCV 88, MCH 29, MCHC 33, RDW 15, platelet count 276. Sodium 137, potassium 3.6, chloride 103, carbon dioxide 24, anion gap 10, BUN 15, creatinine 0.93, glucose 113, lactic acid 2.5, calcium 9.2. Total bilirubin 0.30, AST 21, ALT 34, alkaline phosphatase 36. Troponin 0.00. Total protein 7.5, albumin 4.4. Chest x-ray, impression: No active cardiopulmonary disease. EKG: Sinus tachycardia with a rate of 105, in comparison to prior EKG, no acute ST changes noted. ASSESSMENT AND PLAN: Mr. Bello is a 58-year-old male with past medical history of palpitations, trigeminy, anxiety, hypertension, ulcerative colitis, dyslipidemia, who presented to the emergency department today with complaints of palpitations and chest tightness. 1. Chest pain, rule out acute coronary syndrome. Currently, the patient's chest discomfort has resolved. His initial troponin is flat at 0.00. He has known noted EKG changes. The patient will be admitted for observation to telemetry to trend troponins and monitor on telemetry. His KAREN score is 2. Plan for an exercise stress test in the morning. We will order an echocardiogram as the patient's lactate is 2.5, which is unclear why this is elevated at this time; it is possible that he is in a low perfusion state. 2. Hypertension urgency. Unclear etiology why the patient was still hypertensive; however, he does report significant severe anxiety related to these palpitations he was experiencing. Currently, he reports that his current medication regimen has been keeping him well controlled. We will continue home meds at this time and continue to monitor. 3. Lactic acidosis. Again, unclear etiology; however, low suspicion this is infectious related. We will give the patient a liter of fluid and recheck the lactate afterwards. 4. Ulcerative colitis. We will continue his home medications. 5. Dyslipidemia. He was recently taken off his gemfibrozil due to elevated liver enzymes which he reports has since resolved. 6. DVT prophylaxis. Heparin subcu. 7. Code status. Full code. TIME SPENT: Approximately 60 minutes was spent on this admission. HELEN ALVAREZ, REFINERY OPERATOR [employer] [id number]/CPS #: [id number] MIRANDA
[2018-05-25] MEDS ORDERED: Diltiazem CD CAP* 180 MG PO SCH ×2 (20:10→21:00)
[2018-05-25] MEDS ORDERED: Mercaptopurine TAB* 50 MG PO SCH (21:00)
[2018-05-25] MEDS: Gemfibrozil TAB* 600 MG PO SCH (21:30)
[2018-05-26] MEDS: Heparin VIAL(*) 5000 UNITS/ML VIAL (FIVE THOUSAND) SUBCUT SCH ×2 (05:12→12:54)
[2018-05-26 06:59] LABS: ABS Basophils 0 10^3/ul (0-0.2); ABS Eosinophils 0.4 10^3/ul (0-0.6); ABS Monocytes 0.7 10^3/ul (0-0.8); ABS Neutrophils 4.6 10^3/ul (1.5-7.7); ABS Nucleated RBC 0 10^3/ul; Eosinophil % 4.8 % (0-6); Hematocrit 40 % (42-52); Hemoglobin 13.1 g/dl (14.0-18.0); Lymphocyte % 26.3 % (25-47); Mean Corpuscular HGB Conc 33 g/dl (31-36); Mean Corpuscular Hemoglobin 29 pg (27-31); Mean Corpuscular Volume 87 fL (80-94); Mean Platelet Volume 7.5 um3 (7.4-10.4); Nucleated Red Blood Cells % 0.1; Platelet Count 264 10^3/ul (150-450); Red Blood Count 4.61 10^6/ul (4.00-5.40); Red Cell Distribution Width 15 % (10.5-15); White Blood Count 7.7 10^3/ul (3.5-10.8)
[2018-05-26 07:17] LABS: EGFR Non-African American 97.2 (>60)
--- NOTE | 2018-05-26 08:48 | PN ---
Subjective Date of Service: 05/26/18 Interval History: Mr. Bello reports that he is feeling well this morning. He is not having palpitations today. He has a history of trigeminy for which he follows with Dr. Pérez. Diltiazem usually provides good control of diltiazem. He denies caffeine intake. He reports that his chest pain was only in the setting of severe anxiety brought on by worry about the palpitations. He denies chest pain today. He further denies shortness of breath, nausea, or abdominal pain. Objective Active Medications: Aspirin (Aspirin 81 Mg Chew Tab*) 81 mg PO DAILY VERN Diltiazem HCl (Cardizem Cd Cap*) 180 mg PO 2100 VERN Gemfibrozil (Lopid Tab*) 600 mg PO BID VERN Heparin Sodium (Porcine) (Heparin Vial(*)) 5,000 units SUBCUT Q8HR VERN Lisinopril (Prinivil Tab*) 10 mg PO QPM VERN Mercaptopurine (Purinethol Tab*) 75 mg PO 2100 VERN Omeprazole (Prilosec Cap*) 40 mg PO DAILY VERN Sulfasalazine (Azulfidine Tab*) 1,000 mg PO QID VERN Vital Signs: Temp Pulse Resp BP Pulse Ox 97.9 F 75 20 146/78 97 05/26/18 07:32 05/26/18 07:32 05/26/18 07:32 05/26/18 07:32 05/26/18 07:32 Oxygen Devices in Use Now: None Appearance: Male sitting up in bed in NAD Eyes: No Scleral Icterus Ears/Nose/Mouth/Throat: Mucous Membranes Moist Neck: Trachea Midline Respiratory: Symmetrical Chest Expansion and Respiratory Effort, Clear to Auscultation Cardiovascular: NL Sounds; No Murmurs; No JVD, No Edema Abdominal: NL Sounds; No Tenderness; No Distention Lymphatic: No Cervical Adenopathy Extremities: No Edema Skin: No Rash or Ulcers Neurological: Alert and Oriented x 3, NL Muscle Strength and Tone Nutrition: Taking PO's Result Diagrams: 05/26/18 06:35 05/26/18 06:35 Assess/Plan/Problems-Billing Assessment: Mr. Bello is a 58 yo M with a PMH of hypertension and ulcerative colitis who was admitted on 05/25/18 with chest pain. - Patient Problems (1) Chest pain Comment: - Resolved. - Trops negative, EKG negative, stress test negative. - Suspect related to anxiety. (2) Palpitations Comment: - Suspect related to history of trigeminy. - No concerning arrhythmmias noted on telemetry. - Continue diltiazem, avoid caffeine. - Patient to follow up with Dr. Pérez next month. (3) Hyperlipidemia Comment: - Continue Gemfibrozil. (4) Hypertension Comment: - Controlled. - Continue diltiazem and lisinopril. (5) Ulcerative colitis Comment: - Continue home meds. (6) DVT prophylaxis Comment: - SQ heparin. (7) Full code status Comment: Status and Disposition: OBV. Discharge to home.
[2018-05-26] MEDS ORDERED: Omeprazole CAP* 20 MG PO SCH (09:00)
[2018-05-26] MEDS ORDERED: Diltiazem CD CAP* 180 MG PO SCH (09:00)
[2018-05-26] MEDS ORDERED: Aspirin 81 mg CHEW TAB* 81 MG TAB.CHEW PO SCH (09:00)
[2018-05-26] MEDS ORDERED: Regadenoson* 0.4 MG/5 ML SYRINGE ONE (09:04)
[2018-05-26] MEDS ORDERED: Aminophylline IV* 25 MG/ML 10 ML VIAL ONE (09:04)
[2018-05-26] MEDS: Gemfibrozil TAB* 600 MG PO SCH (10:22)
[2018-05-26] MEDS: sulfaSALAzine TAB* 500 MG PO SCH ×2 (10:22→12:38)
--- NOTE | 2018-05-26 10:28 | RAD ---
Edited for charges. Indication: Chest pain, hypertension. Myocardial perfusion scan was performed after intravenous injection of 10.5 mCi of technetium 99m tetrofosmin. Treadmill stress study was performed and 25.8 mCi of technetium 99 and tetrofosmin was injected for the stress portion of study. The maximum heart rate achieved was 102% of the maximum predicted value. There is homogeneous distribution of the radiotracer throughout the left ventricle. There is no evidence of fixed or reversible perfusion defects identified. The ejection fraction at stress is 52%. Evaluation of wall motion demonstrates no focal wall motion abnormality. IMPRESSION: No fixed or reversible perfusion defect is identified. Normal ejection fraction. ASSESSMENT: Low risk Based on imaging criteria from ACC/AHA 2002 Guideline Update for the Management of Patients With Chronic Stable Angina Table 23. Noninvasive Risk Stratification. MTDD
--- NOTE | 2018-05-26 13:08 | DS ---
CC: Dr. Courtney; Dr. Pérez * DATE OF ADMISSION: 05/25/2018. DATE OF DISCHARGE: 05/26/2018. ATTENDING PHYSICIAN: Dr. Hamilton Logan * (dictation provided by Clarissa Pierce NP). PRIMARY DIAGNOSES: 1. Palpitations with a history of trigeminy. 2. Chest tightness likely related to anxiety. SECONDARY DIAGNOSES: 1. Hypertension. 2. Dyslipidemia. 3. Anxiety. 4. History of palpitations. 5. History of trigeminy. 6. Ulcerative colitis. 7. GERD. PAST SURGICAL HISTORY: Bilateral hernia repair 2017. MEDICATIONS: 1. Fish oil 1,000 mcg p.o. daily. 2. Omeprazole 40 mg p.o. daily. 3. Lisinopril 10 mg p.o. q.a.m. 4. Diltiazem 180 mg p.o. daily. 5. Mercaptopurine 75 mg p.o. daily. 6. Sulfasalazine 1,500 mg in the morning and at midday and 1,000 mg at night. HOSPITAL COURSE: Mr. Bello is a 58-year-old male with a past medical history as outlined above who presented to the hospital on 05/25/2018 with concern for palpitations and chest tightness. Please see the dictated history and physical from Mara Price NP for complete details. In brief, the patient states that he was up all night per his routine playing video games and at 6:00 a.m. he noticed that he was having increased palpitations. He has palpitations intermittently related to trigeminy, but he felt that these were much more consistent and were lasting longer than usual. He began to get quite worried about the palpitations and then developed chest tightness. In the emergency room, Mr. Bello had labs which showed a troponin of 0.00 and an EKG which showed no evidence of ischemia. His other labs were unremarkable. Mr. Bello was placed in observation in the hospital. He underwent additional troponin testing which were all negative. He was monitored on the telemetry unit and had no evidence of concerning arrhythmia, though did notice he had some PVC's at times. He had a nuclear medicine stress test which was low risk and negative for infarct or ischemia. He also had a transthoracic echocardiogram that showed no evidence of significant wall motion or valvular abnormalities and an intact ejection fraction. Mr. Bello is feeling better today. He confirms that the chest pain he felt was only in the setting of extreme anxiety and panic related to this concern about the palpitations, and he has a history of same. He plans to follow-up with Dr. Pérez regarding adjustment of any medications for his palpitations. He is pain free and palpitation free at this time. He does avoid caffeine at all times and will continue to do so as I have advised him to do. DISPOSITION: To home. DIET: Low fat, low salt, no caffeine. ACTIVITY: As tolerated. FOLLOW-UP PLANS: 1. Please follow-up with Dr. Pérez in one month regarding adjustment or addition of medications for intermittent palpitations related to trigeminy. 2. Please follow-up with Dr. Courtney per routine in the next one week. Approximately 60 minutes were spent in the discharge of this patient, more than half that time was spent with the patient at the bedside reviewing the events leading up and during this hospitalization, performing the physical examination , and reviewing the plan of care. CLARISSA PIERCE, ETHAN [id number]/CPS #: [id number] MIRANDA
[2018-05-26 13:45] VITALS: BP 139/90
== END 2018-05-26 14:12 | disposition home or self-care (01) ==
LOC: ED 10:41 → MEDTELE 12:20
PROVIDERS: ADMIT Internal Medicine; ATTEND Internal Medicine
DX: R00.2 Palpitations (principal); R07.9 Chest pain, unspecified; I16.0 Hypertensive urgency; E78.5 Hyperlipidemia, unspecified; F41.9 Anxiety disorder, unspecified; K21.9 Gastro-esophageal reflux disease without esophagitis; K51.90 Ulcerative colitis, unspecified, without complications; E87.2 Acidosis; Z79.899 Other long term (current) drug therapy; Z88.1 Allergy status to other antibiotic agents; Z88.0 Allergy status to penicillin
CPT/HCPCS: 36415; 71045; 78452; 80048; 80053; 83036; 83605; 84439; 84443; 84484; 85025; 93005; 93017; 93306; 96361; 96374; 96375; A9270-GY; A9502; C8929; G0378; J0280; J1644; J2060; J2785; J3490

== ENCOUNTER 2019-11-14 12:02 | Emergency (ER) | payer OTHER ==
--- NOTE | 2019-11-14 12:25 | ED ---
Complex/Multi-Sys Presentation - HPI Summary HPI Summary: Pt. is a 59 y.o male who presents to the ER for vague complaints of "not feeling well" x one week. Pt. states he cannot describe his symptoms but states he feels chilled and unwell. He notes he had some mild upper abd. pain a few days ago that has resolved. Past medical hx of UC and is due for colonoscopy next month. Pt. denies fever, CP, SOB, dysuria, V/D, cough. Denies blood in stools. Sxs are mild in severity. No current modifying factors. - History Of Current Complaint Chief Complaint: EDGeneral Time Seen by Provider: 11/14/19 12:10 Hx Obtained From: Patient - Allergies/Home Medications Allergies/Adverse Reactions: Allergies Allergy/AdvReac Type Severity Reaction Status Date / Time erythromycin base Allergy Unknown Verified 03/31/18 09:42 Reaction Details Penicillins Allergy Unknown Verified 03/31/18 09:42 Reaction Details Home Medications: Home Medications Lisinopril TAB* [Prinivil TAB 5 MG*] 20 mg PO DAILY 04/22/17 [History Confirmed 11/14/19] dilTIAZem HCl [Cartia Xt] 180 mg PO DAILY 05/25/18 [History Confirmed 11/14/19] Mercaptopurine TAB* [Purinethol TAB*] 75 mg PO DAILY 11/14/19 [History Confirmed 11/14/19] Mcfarlan-3 Fatty Acids (Nf) [Fish Oil (NF)] 1,000 mg PO DAILY 11/14/19 [History Confirmed 11/14/19] sulfaSALAzine TAB* [Azulfidine TAB*] 1,000 mg PO DAILY 11/14/19 [History Confirmed 11/14/19] sulfaSALAzine TAB* [Azulfidine TAB*] 1,500 mg PO BID 11/14/19 [History Confirmed 11/14/19] PMH/Surg Hx/FS Hx/Imm Hx Previously Healthy: Yes Endocrine/Hematology History: Reports: Hx Diabetes - pre Cardiovascular History: Reports: Hx Angina - Pressure, Hx Hypercholesterolemia, Hx Hypertension - on meds Denies: Hx Congestive Heart Failure, Hx Coronary Artery Disease, Hx Myocardial Infarction, Hx Valvular Heart Disease, Other Cardiovascular Problems/ Disorders Respiratory History: Denies: Hx Asthma, Hx Chronic Obstructive Pulmonary Disease (COPD), Other Respiratory Problems/Disorders GI History: Reports: Hx Gastroesophageal Reflux Disease, Hx Hiatal Hernia, Other GI Disorders - ulcerative colitis, on meds History: Denies: Hx Renal Disease Sensory History: Reports: Hx Contacts or Glasses Denies: Hx Hearing Aid Opthamlomology History: Reports: Hx Contacts or Glasses Psychiatric History: Reports: Hx Anxiety - on meds - Surgical History Surgery Procedure, Year, and Place: 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 Hx Anesthesia Reactions: No Infectious Disease History: No Infectious Disease History: Denies: Hx Clostridium Difficile, Hx Hepatitis, Hx Human Immunodeficiency Virus (HIV), Hx of Known/Suspected MRSA, Hx Shingles, Hx Tuberculosis, Traveled Outside the [place] in Last 30 Days - Family History Known Family History: Positive: Cardiac Disease - Father: age 60 [place], Diabetes - Social History Alcohol Use: None Hx Substance Use: No Substance Use Type: Reports: None Hx Tobacco Use: No Smoking Status (MU): Never Smoked Tobacco Review of Systems Positive: Chills. Negative: Fever ENT: Negative Cardiovascular: Negative Positive: Chest Pain. Negative: Palpitations Respiratory: Negative Negative: Shortness Of Breath, Cough Gastrointestinal: Negative Negative: Abdominal Pain, Vomiting, Diarrhea, Nausea Skin: Negative Neurological/Mental Status: Negative All Other Systems Reviewed And Are Negative: Yes Physical Exam Triage Information Reviewed: Yes Vital Signs On Initial Exam: Initial Vitals Temp Pulse Resp BP Pulse Ox 98.6 F 111 18 171/97 97 11/14/19 12:03 11/14/19 12:03 11/14/19 12:03 11/14/19 12:03 11/14/19 12:03 Vital Signs Reviewed: Yes Appearance: Positive: Well-Appearing - Pt. sitting up in bed in NAD. Mother present. Skin: Positive: Warm, Dry Head/Face: Positive: Normal Head/Face Inspection Eyes: Positive: Normal, EOMI, ELI ENT: Positive: Pharynx normal, TMs normal Neck: Positive: Supple, Nontender. Negative: Nuchal Rigidity Respiratory/Lung Sounds: Positive: Clear to Auscultation, Breath Sounds Present Cardiovascular: Positive: Normal, RRR Abdomen Description: Positive: Nontender, Soft Musculoskeletal: Positive: Normal, Strength/ROM Intact Neurological: Positive: Normal, CN Intact II-III Psychiatric: Positive: Affect/Mood Appropriate Procedures - Sedation Patient Received Moderate/Deep Sedation with Procedure: No Diagnostics - Vital Signs Vital Signs Temp Pulse Resp BP Pulse Ox 11/14/19 12:03 98.6 F 111 18 171/97 97 - Laboratory Result Diagrams: 11/14/19 12:34 11/14/19 12:34 Lab Statement: Any lab studies that have been ordered have been reviewed, and results considered in the medical decision making process. Complex Multi-Symp Course/Dx Course Of Treatment: Pt. with mild complaints of chills and not feeling well. Benign exam. BP elevated. Will obtain labs. ECG done at 1341 shows a sinus rhythm of 89bpm, normal axis, no ST elevation or depression. Labs show mild anemia, otherwise unremarkable. U/A negative. Negaitve flu. Negative CXR per radiology. Results discussed. Pt. comfortable with dc home. To f.u with pcp and return to er if sxs change or worsen. - Diagnoses Provider Diagnoses: Fatigue Discharge ED - Sign-Out/Discharge Documenting (check all that apply): Patient Departure - Discharge Plan Condition: Good Disposition: HOME Patient Education Materials: Fatigue (ED) Referrals: Tamera Courtney MD [Primary Care Provider] - Additional Instructions: Please schedule a follow up with PCP within one week for recheck Increase fluids and rest Return to ER If symptoms change or worsen - Billing Disposition and Condition Condition: GOOD Disposition: Home - Attestation Statements Provider Attestation: I was available for consultation for this patient. I did not evaluate the patient or participate in any medical decision making or disposition decisions unless I am specifically named in the chart as having consulted on the patient. If I have consulted on the patient, please see my own ED note on the patient encounter. Eliazar Craft MD
[2019-11-14 12:40] LABS: ABS Eosinophils 0.3 10^3/ul (0-0.6); ABS Lymphocytes 1.2 10^3/ul (1.0-4.8); ABS Monocytes 0.5 10^3/ul (0-0.8); ABS Neutrophils 3.9 10^3/ul (1.5-7.7); Eosinophil % 4.6 %; Hematocrit 37 % (42-52); Lymphocyte % 19.9 %; Mean Corpuscular HGB Conc 33 g/dL (31-36); Mean Corpuscular Hemoglobin 27 pg (27-31); Mean Corpuscular Volume 81 fL (80-94); Mean Platelet Volume 7.2 fL (7.4-10.4); Platelet Count 272 10^3/uL (150-450); Red Blood Count 4.52 10^6 /uL (4.18-5.48); Red Cell Distribution Width 16 % (10-15); White Blood Count 5.8 10^3/uL (3.5-10.8)
[2019-11-14 13:06] LABS: Albumin 4.2 g/dL (3.2-5.2); Albumin/Globulin Ratio 1.6 (1-3); BUN/Creatinine Ratio 13.6 (8-20); CRP High Sensitivity 1.32 mg/L (<2.00); Calcium 8.9 mg/dL (8.6-10.3); EGFR Non-African American 89.3 (>60); Globulin 2.7 g/dL (2-4); Potassium 3.6 mmol/L (3.5-5.0); Total Bilirubin 0.3 mg/dL (0.2-1.0); Total Protein 6.9 g/dL (6.4-8.9)
[2019-11-14 13:14] LABS: Influenza A Molecular Negative (Negative); Influenza B Molecular Negative (Negative)
[2019-11-14 14:40] LABS: Urine Appearance Clear; Urine Bilirubin Negative (Negative); Urine Blood Negative (Negative); Urine Color Amber; Urine Glucose Negative (Negative); Urine Ketones Negative (Negative); Urine Nitrite Negative (Negative); Urine Protein Negative (Negative); Urine Urobilinogen Negative (Negative)
[2019-11-14 15:07] VITALS: BP 149/89
== END 2019-11-14 15:07 | disposition home or self-care (01) ==
LOC: ED 12:02
DX: R53.83 Other fatigue (principal); R10.10 Upper abdominal pain, unspecified; I10 Essential (primary) hypertension; F41.9 Anxiety disorder, unspecified; Z79.899 Other long term (current) drug therapy; Z88.1 Allergy status to other antibiotic agents; Z88.0 Allergy status to penicillin
CPT/HCPCS: 36415; 71045; 80053; 81003; 84484; 85025; 86141; 93005; 99283

== ENCOUNTER 2019-12-03 08:37 | Emergency (ER) | payer OTHER ==
[2019-12-03 09:51] LABS: ABS Eosinophils 0.2 10^3/ul (0-0.6); ABS Monocytes 0.4 10^3/ul (0-0.8); ABS Neutrophils 4.2 10^3/ul (1.5-7.7); Eosinophil % 3.5 %; Hematocrit 37 % (42-52); Lymphocyte % 17.3 %; Mean Corpuscular HGB Conc 32 g/dL (31-36); Mean Corpuscular Hemoglobin 26 pg (27-31); Mean Corpuscular Volume 80 fL (80-94); Mean Platelet Volume 7.7 fL (7.4-10.4); Platelet Count 296 10^3/uL (150-450); Red Blood Count 4.64 10^6 /uL (4.18-5.48); Red Cell Distribution Width 17 % (10-15); White Blood Count 5.9 10^3/uL (3.5-10.8)
[2019-12-03 09:56] LABS: INR 1.04 (0.82-1.09)
[2019-12-03 10:13] LABS: Albumin 4.4 g/dL (3.2-5.2); Albumin/Globulin Ratio 1.7 (1-3); BUN/Creatinine Ratio 11.7 (8-20); Calcium 9.1 mg/dL (8.6-10.3); EGFR African American 100.1 (>60); EGFR Non-African American 82.7 (>60); Globulin 2.6 g/dL (2-4); Potassium 3.7 mmol/L (3.5-5.0); Total Bilirubin 0.3 mg/dL (0.2-1.0)
--- NOTE | 2019-12-03 10:44 | ED ---
Respiratory - HPI Summary HPI Summary: This patient is a 59-year-old male with a history of ulcerative colitis and hypertension presenting to the ED with a cough for the last 2 weeks. He states the cough is worse over the past 4 days. He states it is not much worse than his baseline and he does admit to having a cough over several years. He believes it may be related to allergies or reflux. He is endorsing some chest tightness with the cough, however denies any other chest tightness or pain while at rest. Patient is also concerned with his anemia and would like that to be checked. He is also requesting to be checked for the coronavirus. He states he did go out on Wednesday to the store, however has been at home otherwise. Denies any abd pain, back pain, SOB. Cough is without production. Denies fevers, sweats or chills. No hx of cardiac disease. No rectal bleeding or issues with his UC. States he is overdue for a colonoscopy and is concerned with colon cancer. - History of Current Complaint Chief Complaint: EDChestPainROMI Stated Complaint: CHEST PAIN Time Seen by Provider: 12/03/19 08:40 Hx Obtained From: Patient Onset/Duration: Gradual Onset Timing: Constant Initial Severity: Mild Current Severity: Mild Pain Intensity: 3 Character: Cough (Nonproductive) Sputum Amount: None Aggravating Factor(s): Allergens Associated Signs and Symptoms: Negative - Allergy/Home Medications Allergies/Adverse Reactions: Allergies Allergy/AdvReac Type Severity Reaction Status Date / Time erythromycin base Allergy Unknown Verified 12/03/19 10:49 Reaction Details Penicillins Allergy Unknown Verified 12/03/19 10:49 Reaction Details Home Medications: Home Medications Lisinopril TAB* [Prinivil TAB 5 MG*] 20 mg PO DAILY 04/22/17 [History Confirmed 11/14/19] dilTIAZem HCl [Cartia Xt] 180 mg PO DAILY 05/25/18 [History Confirmed 11/14/19] Mercaptopurine TAB* [Purinethol TAB*] 75 mg PO DAILY 11/14/19 [History Confirmed 11/14/19] Perry-3 Fatty Acids (Nf) [Fish Oil (NF)] 1,000 mg PO DAILY 11/14/19 [History Confirmed 11/14/19] sulfaSALAzine TAB* [Azulfidine TAB*] 1,000 mg PO DAILY 11/14/19 [History Confirmed 11/14/19] sulfaSALAzine TAB* [Azulfidine TAB*] 1,500 mg PO BID 11/14/19 [History Confirmed 11/14/19] PMH/Surg Hx/FS Hx/Imm Hx Previously Healthy: Yes Endocrine/Hematology History: Reports: Hx Diabetes - pre Cardiovascular History: Reports: Hx Angina - Pressure, Hx Hypercholesterolemia, Hx Hypertension - on meds Denies: Hx Congestive Heart Failure, Hx Coronary Artery Disease, Hx Myocardial Infarction, Hx Valvular Heart Disease, Other Cardiovascular Problems/ Disorders Respiratory History: Denies: Hx Asthma, Hx Chronic Obstructive Pulmonary Disease (COPD), Other Respiratory Problems/Disorders GI History: Reports: Hx Gastroesophageal Reflux Disease, Hx Hiatal Hernia, Other GI Disorders - ulcerative colitis, on meds History: Denies: Hx Renal Disease Sensory History: Reports: Hx Contacts or Glasses Denies: Hx Hearing Aid Opthamlomology History: Reports: Hx Contacts or Glasses Psychiatric History: Reports: Hx Anxiety - on meds - Surgical History Surgery Procedure, Year, and Place: 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 Hx Anesthesia Reactions: No - Immunization History Hx Pertussis Vaccination: No Immunizations Up to Date: Yes Infectious Disease History: No Infectious Disease History: Denies: Hx Clostridium Difficile, Hx Hepatitis, Hx Human Immunodeficiency Virus (HIV), Hx of Known/Suspected MRSA, Hx Shingles, Hx Tuberculosis, Traveled Outside the [place] in Last 30 Days - Family History Known Family History: Positive: Cardiac Disease - Father: age 60 [place], Diabetes - Social History Occupation: Unemployed Lives: Alone Alcohol Use: None Hx Substance Use: No Substance Use Type: Reports: None Hx Tobacco Use: No Smoking Status (MU): Never Smoked Tobacco Review of Systems Negative: Fever, Chills, Fatigue, Skin Diaphoresis Negative: Palpitations, Chest Pain Positive: Cough. Negative: Shortness Of Breath Genitourinary: Negative Positive: no symptoms reported, see HPI Negative: Arthralgia, Myalgia Skin: Negative All Other Systems Reviewed And Are Negative: Yes Physical Exam - Summary Physical Exam Summary: Appearance: Comfortable, pleasant, alert, appears anxious Skin: Soft dry skin, no lesions. Nailbeds pink with no cyanosis or clubbing. No petechia noted. Eyes: ELI, EOMI, Conjunctiva pink with no redness or exudates. Mouth: Dentition without lesions. Moist mucosa Neck: Full range of motion. Palpable thyroid. Trachea at midline. No lymphadenopathy. Pulm: Chest symmetrical expansion. No deformities on posterior chest wall. Lungs clear to auscultation and percussion, without adventitious sounds. CV: No JVD. No deformities on anterior chest wall. Heart sounds. RRR. Normal S1 and single S2. No S3, S4, rubs, or murmurs. Carotids 2+ bilaterally without bruits. . exam not performed GI: Bowel sounds WNL in all 4 quadrants. No pain on deep palpation of all 4 quadrants. Negative richter's, negative obturator. Psoas not performed. No pain over Mcburney's point. Musculoskeletal: Flexion and extension of neck without limitations. ROM WNL in all extremities. No deformities noted. Pulses +2 bilaterally. Neuro: Motor strength is 5/5 in upper and lower extremities bilaterally. A&OX3 Psych: Logical, coherent Triage Information Reviewed: Yes Vital Signs On Initial Exam: Initial Vitals Temp Pulse Resp BP Pulse Ox 98.9 F 105 20 174/106 97 12/03/19 08:53 12/03/19 08:53 12/03/19 08:53 12/03/19 08:53 12/03/19 08:53 Vital Signs Reviewed: Yes Appearance: Positive: Well-Appearing, Well-Nourished Skin: Positive: Warm, Skin Color Reflects Adequate Perfusion Head/Face: Positive: Normal Head/Face Inspection Eyes: Positive: EOMI, ELI, Conjunctiva Clear Neck: Positive: Supple, No Lymphadenopathy Respiratory/Lung Sounds: Positive: Clear to Auscultation, Breath Sounds Present Cardiovascular: Positive: RRR, Pulses are Symmetrical in both Upper and Lower Extremities Musculoskeletal: Positive: Strength/ROM Intact Neurological: Positive: Sensory/Motor Intact, Alert, Oriented to Person Place, Time, Speech Normal Psychiatric: Positive: Normal, Affect/Mood Appropriate AVPU Assessment: Alert Procedures - Sedation Patient Received Moderate/Deep Sedation with Procedure: No Diagnostics - Vital Signs Vital Signs Temp Pulse Resp BP Pulse Ox 12/03/19 08:53 98.9 F 105 20 174/106 97 - Laboratory Lab Results: Lab Results 12/03/19 12/03/19 12/03/19 Range/Units 09:30 09:30 09:30 WBC 5.9 (3.5-10.8) 10^3/uL RBC 4.64 (4.18-5.48) 10^6 /uL Hgb 12.0 L (14.0-18.0) g/dL Hct 37 L (42-52) % MCV 80 (80-94) fL MCH 26 L (27-31) pg MCHC 32 (31-36) g/dL RDW 17 H (10-15) % Plt Count 296 (150-450) 10^3/uL MPV 7.7 (7.4-10.4) fL Neut % (Auto) 71.2 % Lymph % (Auto) 17.3 % [place] % (Auto) 7.2 % Eos % (Auto) 3.5 % Baso % (Auto) 0.8 % Absolute Neuts (auto) 4.2 (1.5-7.7) 10^3/ul Absolute Lymphs (auto) 1.0 (1.0-4.8) 10^3/ul Absolute Monos (auto) 0.4 (0-0.8) 10^3/ul Absolute Eos (auto) 0.2 (0-0.6) 10^3/ul Absolute Basos (auto) 0.0 (0-0.2) 10^3/ul Absolute Nucleated RBC 0.0 10^3/ul Nucleated RBC % 0.0 INR (Anticoag Therapy) 1.04 (0.82-1.09) Sodium (135-145) mmol/L Potassium (3.5-5.0) mmol/L Chloride (101-111) mmol/L Carbon Dioxide (22-32) mmol/L Anion Gap (2-11) mmol/L BUN (6-24) mg/dL Creatinine (0.67-1.17) mg/dL Est GFR ( Amer) (>60) Est GFR (Non-Af Amer) (>60) BUN/Creatinine Ratio (8-20) Glucose (70-100) mg/dL Lactic Acid (0.5-2.0) mmol/L Calcium (8.6-10.3) mg/dL Total Bilirubin (0.2-1.0) mg/dL AST (13-39) U/L ALT (7-52) U/L Alkaline Phosphatase (34-104) U/L Troponin I (<0.03) ng/mL Total Protein (6.4-8.9) g/dL Albumin (3.2-5.2) g/dL Globulin (2-4) g/dL Albumin/Globulin Ratio (1-3) Coronavirus (PCR) Pending 12/03/19 12/03/19 Range/Units 09:30 09:30 WBC (3.5-10.8) 10^3/uL RBC (4.18-5.48) 10^6 /uL Hgb (14.0-18.0) g/dL Hct (42-52) % MCV (80-94) fL MCH (27-31) pg MCHC (31-36) g/dL RDW (10-15) % Plt Count (150-450) 10^3/uL MPV (7.4-10.4) fL Neut % (Auto) % Lymph % (Auto) % [place] % (Auto) % Eos % (Auto) % Baso % (Auto) % Absolute Neuts (auto) (1.5-7.7) 10^3/ul Absolute Lymphs (auto) (1.0-4.8) 10^3/ul Absolute Monos (auto) (0-0.8) 10^3/ul Absolute Eos (auto) (0-0.6) 10^3/ul Absolute Basos (auto) (0-0.2) 10^3/ul Absolute Nucleated RBC 10^3/ul Nucleated RBC % INR (Anticoag Therapy) (0.82-1.09) Sodium 135 (135-145) mmol/L Potassium 3.7 (3.5-5.0) mmol/L Chloride 101 (101-111) mmol/L Carbon Dioxide 24 (22-32) mmol/L Anion Gap 10 (2-11) mmol/L BUN 11 (6-24) mg/dL Creatinine 0.94 (0.67-1.17) mg/dL Est GFR ( Amer) 100.1 (>60) Est GFR (Non-Af Amer) 82.7 (>60) BUN/Creatinine Ratio 11.7 (8-20) Glucose 123 H (70-100) mg/dL Lactic Acid 1.9 (0.5-2.0) mmol/L Calcium 9.1 (8.6-10.3) mg/dL Total Bilirubin 0.30 (0.2-1.0) mg/dL AST 24 (13-39) U/L ALT 50 (7-52) U/L Alkaline Phosphatase 49 (34-104) U/L Troponin I 0.00 (<0.03) ng/mL Total Protein 7.0 (6.4-8.9) g/dL Albumin 4.4 (3.2-5.2) g/dL Globulin 2.6 (2-4) g/dL Albumin/Globulin Ratio 1.7 (1-3) Coronavirus (PCR) Result Diagrams: 12/03/19 09:30 12/03/19 09:30 Lab Statement: Any lab studies that have been ordered have been reviewed, and results considered in the medical decision making process. Disposition - Course Course Of Treatment: Labs obtained which shows slight anemia at 12 and 37. Otherwise unremarkable including a trop of 0.00. Lungs CTA. CXR shows no acute cardio pulmonary disease. Patient is afebrile and vital signs are stable. Coronavirus obtained, this is pending. This was drawn as patient has been having a worsening cough for the past 4 days and unsure of exposure. Otherwise well. Discussed findings with patient. Denies sxs curerntly. Pt will be dc'd with cough. He will remain on covid precautions. - Differential Dx - Cardiopulmonary Differential Diagnoses - Cardiopulmonary: Other - viral illness, allergies - Diagnoses Provider Diagnoses: Cough, Anxiety about health Discharge ED - Sign-Out/Discharge Documenting (check all that apply): Patient Departure - Discharge Plan Condition: Stable Disposition: HOME Referrals: Tamera Courtney MD [Primary Care Provider] - Additional Instructions: As discussed, continue to stay indoors and stay away from others If you develop worsening symptoms, return to the ED - Billing Disposition and Condition Condition: STABLE Disposition: Home
[2019-12-03 10:57] VITALS: BP 142/94
== END 2019-12-03 10:55 | disposition home or self-care (01) ==
LOC: ED 08:37
DX: R05 Cough (principal); F41.9 Anxiety disorder, unspecified; R73.03 Prediabetes; R07.9 Chest pain, unspecified; Z88.2 Allergy status to sulfonamides; K21.9 Gastro-esophageal reflux disease without esophagitis; I10 Essential (primary) hypertension; E78.00 Pure hypercholesterolemia, unspecified; Z79.899 Other long term (current) drug therapy; Z20.828 Contact with and (suspected) exposure to other viral communicable diseases
CPT/HCPCS: 36415; 71045; 80053; 83605; 84484; 85025; 85610; 93005; 99283; U0002